=== PATIENT | female | born 1970 | race Caucasian/White ===

== ENCOUNTER 2017-07-20 05:36 | Inpatient (IN) | payer OTHER ==
[~2017-07-20] VITALS: Ht 172.7 cm; Wt 112.0 kg
[~2017-07-20 05:36] MED LIST: ADVIL200 MG PO; CLARITIN10 M3 PO; FEOSOL325 MG PO; LOESTRIN FE 1.1 EACH PO; ONE DAILY WOME1 EACH PO; PEPTO BISMOL262 MG PO; ZICAM PO
[2017-07-20 06:00] VITALS: BP 135/80
[2017-07-20 06:22] LABS: BASOPHIL (%) 0.5 % (0-1); EOSINOPHIL (%) 3.1 % (0-5); EOSINOPHIL COUNT 0.2 K/uL (0-0.3); HEMATOCRIT 31.6 % (36.0-46.0); HEMOGLOBIN 9.8 G/DL (11.9-15.5); IMMATURE GRANULOCYTE (%) 0.3 % (0.0-0.7); LYMPHOCYTE COUNT 2.1 K/uL (1.0-2.8); MCV 83.8 FL (83-99); MONOCYTE (%) 7.8 % (3-12); MONOCYTE COUNT 0.5 K/uL (0-0.8); NEUTROPHIL (%) 55.3 % (45-76); NEUTROPHIL COUNT 3.5 K/uL (1.8-6.4); PLATELET COUNT 272 K/uL (156-360); RBC DIS.WIDTH-CV 17.5 % (11.8-14.6); RED BLOOD COUNT 3.77 M/uL (3.80-5.20); WHITE BLOOD COUNT 6.4 K/uL (4.1-10.2)
[2017-07-20 13:19] LABS: CREATININE 0.8 MG/DL (0.6-1.3); GFR ESTIMATE (CALCULATED) > 59 mL/min/
[2017-07-20 20:32] VITALS: BP 133/82
[2017-07-21] VITALS (7 sets, daily range): BP systolic 100–138; BP diastolic 60–83
[2017-07-21 06:22] LABS: BASOPHIL (%) 0.1 % (0-1); EOSINOPHIL (%) 0.2 % (0-5); HEMATOCRIT 29.4 % (36.0-46.0); HEMOGLOBIN 9.3 G/DL (11.9-15.5); IMMATURE GRANULOCYTE (%) 0.2 % (0.0-0.7); LYMPHOCYTE (%) 19.1 % (15-42); LYMPHOCYTE COUNT 1.5 K/uL (1.0-2.8); MCH 26.2 PG (29.0-34.0); MCHC 31.6 G/DL (30.0-36.0); MCV 82.8 FL (83-99); MONOCYTE (%) 11.4 % (3-12); MONOCYTE COUNT 0.9 K/uL (0-0.8); NEUTROPHIL COUNT 5.5 K/uL (1.8-6.4); PLATELET COUNT 233 K/uL (156-360); RBC DIS.WIDTH-CV 17.5 % (11.8-14.6); RBC DIS.WIDTH-SD 53.7 % (39-53); RED BLOOD COUNT 3.55 M/uL (3.80-5.20)
[2017-07-22 04:14] VITALS: BP 132/75
[2017-07-22 07:22] VITALS: BP 129/70
[2017-07-22] MEDS ORDERED: IBUPROFEN800 MG PO (12:30)
[2017-07-22] MEDS ORDERED: ENDOCET 5-3251 EACH PO (12:30)
== END 2017-07-22 14:55 | disposition home or self-care (01) | DRG 742 ==
LOC: SDC 05:36 → 2SOUTH 12:10 → 2EAST 12:10 → ENRESERV 12:12 → SDC 13:52 → ENRESERV 16:10 → 2SOUTH 17:19 → ENRESERV 17:20 → 2EAST 19:36 → ENPENDDIS 07-22 → 2EAST 07-22 14:55
PROVIDERS: Obstetrics & Gynecology
DX: N92.0 Excessive and frequent menstruation with regular cycle (principal); K42.0 Umbilical hernia with obstruction, without gangrene; N84.0 Polyp of corpus uteri; D25.9 Leiomyoma of uterus, unspecified; Z53.31 Laparoscopic surgical procedure converted to open procedure; E66.01 Morbid (severe) obesity due to excess calories; K38.8 Other specified diseases of appendix; D64.9 Anemia, unspecified; E65 Localized adiposity; N94.6 Dysmenorrhea, unspecified; N63.41 Unspecified lump in right breast, subareolar; Z68.37 Body mass index [BMI] 37.0-37.9, adult; Z88.2 Allergy status to sulfonamides; Z88.0 Allergy status to penicillin; Z80.3 Family history of malignant neoplasm of breast; Z80.1 Family history of malignant neoplasm of trachea, bronchus and lung
CPT/HCPCS: 82565; 84703; 85025; 86850; 86900; 86901; 86920; 88304; 88307; J0131; J0330; J0690; J1100; J1170; J1335; J1885; J2250; J2405; J2710; J2765; J3010; J7050; J7120; P9016; S0020